=== PATIENT | male | born 1970 | race Two or more races ===

== ENCOUNTER 2018-03-26 17:10 | Emergency (ER) | payer SELFPAY ==
[~2018-03-26] VITALS: Ht 170.2 cm; Wt 88.5 kg
[2018-03-26 17:38] VITALS: BP 131/87
--- NOTE | 2018-03-26 19:39 | RAD ---
PQRS Compliance statement: One or more of the following individualized dose reduction techniques were utilized for this examination: 1. Automated exposure control. 2. Adjustment of the mA and/or kV according to patient size. 3. Use of iterative reconstruction technique. Indication:left facial tingling, no priors TECHNIQUE: CT head without IV contrast COMPARISON:None FINDINGS: No pathologic extra-axial or intra-axial fluid collection. The ventricles and basal cisterns are within normal limits. No acute intracranial bleed. No focal loss of galeana-white differentiation. Orbits within normal limits. No suspicious calvarial lesion. Visualized paranasal sinuses and mastoid air cells are clear. IMPRESSION: No acute intracranial process. If concern for acute ischemic stroke is high, please consider MRI brain. Electronically signed by: David Lima DO (03/26/2018 7:37 PM) [facility]
[2018-03-26] MEDS ORDERED: PRED20TA PO (20:12)
--- NOTE | 2018-03-26 20:12 | PHYS DOC ---
Past Medical History Past Medical History: Diabetes-Type II Past Surgical History: No Surgical History Alcohol Use: None Drug Use: None Adult General Chief Complaint Chief Complaint: FACE PAIN HPI HPI Patient is a 47 year old male who presents to the ER, accompanied by his daughter, with complaints of left sided facial numbness today since this morning. Pt denies any recent injury or illness. He States that his left eye feels dry and that he has difficulty closing it. Pt denies any fever, weakness, difficulty speaking, difficulty swallowing, confusion, vision changes, incoordination, headache, or numbness/tingling in his extremities. Review of Systems Review of Systems Constitutional: Denies fever or chills [] Eyes: Denies change in visual acuity, redness, or eye pain; see HPI[] HENT: Denies nasal congestion or sore throat [] Respiratory: Denies cough or shortness of breath [] Cardiovascular: No additional information not addressed in HPI [] Integument: Denies rash or skin lesions [] Neurologic: Denies headache, see HPI All other systems were reviewed and found to be within normal limits, except as documented in this note. Current Medications Current Medications Current Medications Medications (Trade) Dose Ordered Sig/Diana Start Time Stop Time Status Last Admin Dose Admin Prednisone (Prednisone) 60 mg 1X ONCE 03/26/18 20:15 03/26/18 20:16 DC 03/26/18 20:15 60 MG Allergies Allergies Allergies Coded Allergies Type Severity Reaction Last Updated Verified No Known Drug Allergies 03/26/18 No Physical Exam Physical Exam Constitutional: Well developed, well nourished, no acute distress, non-toxic appearance. [] HENT: Normocephalic, atraumatic, bilateral external ears normal, bilateral TMs normal, oropharynx moist, no oral exudates, nose normal. [] Eyes: PERRLA, EOMI, conjunctiva normal, no discharge; decreased closure of left upper eyelid- complete closure with effort only [] Neck: Normal range of motion, no tenderness, supple, no stridor. [] Cardiovascular:Heart rate regular rhythm, no murmur [] Lungs & Thorax: Bilateral breath sounds clear to auscultation [] Skin: Warm, dry, no erythema, no rash. [] Extremities: No tenderness, no cyanosis, no clubbing, ROM intact, no edema. [] Neurologic: Alert and oriented X 3, normal motor function and normal sensory function of extremities x4, speech clear; mild asymmetry of mouth with smiling, moderate movement of forehead with effort Psychologic: Affect normal, judgement normal, mood normal. [] Current Patient Data Vital Signs Vital Signs Date Time Temp Pulse Resp B/P (MAP) Pulse Ox O2 Delivery O2 Flow Rate FiO2 03/26/18 17:38 98.0 100 16 131/87 (102) 96 Room Air 98.0 EKG EKG [] Radiology/Procedures Radiology/Procedures REASON: Left facial tingling PROCEDURE: CT HEAD WO CONTRAST PQRS Compliance statement: One or more of the following individualized dose reduction techniques were utilized for this examination: 1. Automated exposure control. 2. Adjustment of the mA and/or kV according to patient size. 3. Use of iterative reconstruction technique. Indication:left facial tingling, no priors TECHNIQUE: CT head without IV contrast COMPARISON:None FINDINGS: No pathologic extra-axial or intra-axial fluid collection. The ventricles and basal cisterns are within normal limits. No acute intracranial bleed. No focal loss of galeana-white differentiation. Orbits within normal limits. No suspicious calvarial lesion. Visualized paranasal sinuses and mastoid air cells are clear. IMPRESSION: No acute intracranial process. If concern for acute ischemic stroke is high, please consider MRI brain.[] Course & Med Decision Making Course & Med Decision Making Pertinent Labs and Imaging studies reviewed. (See chart for details) Dx: Bowser's palsy Ddx: CVA, cerebral mass/lesion, otitis media Ct head was negative. Physical exam is consistent with Bowser's Palsy, pt was also evaluated by Dr. Tabares who agrees. Pt was given 60 mg of prednisone PO in the department. Rx for prednisone 60 mg x6 more days written. PT was instructed to use artificial tears every 15-30 minutes during the day and at night apply refresh PM or Lacri-lube to affected eye and tape eye shut. Avoid grinding, sawing, or sanding activities. Wear protective glasses with side pieces or wear an eye shield in cris or drafty areas. Follow up with primary care doctor in 1- 2 days. Pt verbalized an understanding of discharge, medications, follow-up, home care, and return to ED precautions, was in agreement with POC. . Rafy Disclaimer Rafy Disclaimer This electronic medical record was generated, in whole or in part, using a voice recognition dictation system. Departure Departure Impression: Primary Impression: Bowser's palsy Disposition: 01 HOME, SELF-CARE Condition: STABLE Referrals: NO PCP (PCP) Patient Instructions: Bowser's Palsy-Brief Additional Instructions: Fill prescription and use as directed. Use artificial tears every 15-30 minutes during the day. at night apply refresh PM or Lacri-lube to affected eye and tape eye shut. Avoid grinding, sawing, or sanding activities. Wear protective glasses with side pieces or wear an eye shield in cris or drafty areas. Follow up with primary care doctor in 1-2 days. Return to the ER if symptoms worsen. Scripts Prednisone (PREDNISONE) 20 Mg Tablet 60 MG PO DAILY for 6 Days, #18 TAB 0 Refills start this medication on 03/27/18 as you were given the first dose in the ER tonight Prov: JENAE ADAMES APRN 03/26/18 JENAE ADAMES APRN Mar 26, 2018 20:12
[2018-03-26] MEDS: predniSONE 20 MG TABLET PO ONE (20:15)
== END 2018-03-26 20:22 | disposition home or self-care (01) ==
LOC: ER 17:10
DX: G51.0 Bell's palsy (principal); E11.9 Type 2 diabetes mellitus without complications
CPT/HCPCS: 70450; 99284; J7512